=== PATIENT | female | born 1940 | race Caucasian/White ===

== ENCOUNTER 2022-04-22 11:14 | Emergency (ER) | payer MEDICARE, SELFPAY ==
--- NOTE | 2022-04-22 11:22 | ED.URI ---
HPI - URI/Sore Throat General Chief Complaint: Upper Respiratory Infection Stated Complaint: cough, congestion Time Seen by Provider: 04/22/22 11:53 Source: patient and RN notes reviewed Mode of arrival: ambulatory Limitations: no limitations History of Present Illness HPI Narrative: 81-year-old female presents with multiple complaints. She reports her primary complaint is a productive cough that started on , became productive yesterday. She denies nasal congestion, rhinorrhea, sore throat, chest pain, shortness of breath, fever, aches, chills, sweats. She reports small amount of yellow phlegm. She denies taking any medications for her symptoms. A separate complaint, she reports 5 month history of left TMJ pain. Reports she saw her dentist to told her she did not have any dental infection. She reports clicking and pain with chewing. She reports if she applies pressure to the jaw it helps her pain. MD elicited complaint: cough and other (Jaw pain) Related Data Home Medications Medication Instructions Recorded Confirmed atorvastatin 20 mg tablet 20 mg PO DAILY 04/22/22 04/22/22 hydrochlorothiazide 12.5 mg tablet 12.5 mg PO DAILY 04/22/22 04/22/22 lisinopril 10 mg tablet 10 mg PO DAILY 04/22/22 04/22/22 nifedipine 90 mg tablet,extended 90 mg PO DAILY 04/22/22 04/22/22 release 24 hr Allergies Allergy/AdvReac Type Severity Reaction Status Date / Time codeine Allergy Unknown Verified 04/22/22 11:33 Sulfa (Sulfonamide Allergy Unknown Verified 04/22/22 11:33 Antibiotics) Review of Systems Review of Systems: CONSTITUTIONAL: Denies malaise, chills, sweats, or fever. EYES: Denies visual changes, redness, or discharge. ENT: Denies rhinorrhea, congestion, sinus pain, otalgia and sore throat. Reports left jaw pain CARDIOVASCULAR: Denies chest pain, palpitations, or edema. RESPIRATORY: Reports productive cough. Denies dyspnea. GASTROINTESTINAL: Denies abdominal pain, nausea, vomiting, diarrhea SKIN: Denies rash or itching. MUSCULOSKELETAL: Denies myalgia. NEUROLOGIC: Denies headache. All systems reviewed & are unremarkable except as noted in HPI and below PMFSH Comments At time of signature, agree with nursing past medical, surgical, social and family history. There is no relevant family history pertinent to the presenting complaint Exam Narrative: GENERAL: Well-appearing, well-nourished, and in no acute distress. HEAD: Normocephalic EYES: PERRLA, conjunctivae clear ENT: Nares clear, clear discharge. Mucous membranes moist. TM pearly huang with dull light reflex bilaterally; no tragal tenderness. Oropharynx not erythematous without lesions. Tonsils not enlarged and without exudate, no drooling, no hoarseness, no trismus, uvula midline. Left Jaw clicking palpable NECK: Supple. No lymphadenopathy CHEST: Clear to auscultation, breath sounds equal. No wheezing, rhonchi, rales, or stridor. No respiratory distress, speaks in full sentences. HEART: Regular rate and rhythm. No murmur heard. SKIN: Warm, dry, no rash. NEURO: Alert and oriented x3. PSYCH: Normal mood and affect Course Course Emergency Course: Patient is aware of diagnosis, understands and agrees to treatment plan. Anticipatory guidance given. Patient agrees to follow-up as directed and is aware of reasons to seek care at the emergency department. Portions of this record may have been created with voice recognition software Level of Care: Express Care Visit Vital Signs Vital signs: Reviewed. MDM - URI/Sore Throat MDM Narrative Medical decision making narrative: Differential diagnosis considered: Jacome virus, strep pharyngitis, allergic rhinitis, upper respiratory tract infection, sinusitis, rhinosinusitis, nasopharyngitis. viral pharyngitis, otitis media, otitis externa, pneumonia, bronchitis, viral cough syndrome, viral syndrome, and influenza. Exam findings show no acute concerns or changes; patient is non-toxic appearing and is in no distres
[2022-04-22 11:25] VITALS: BP 165/95; PULSE 103; RESP 16; TEMP 37.1; O2SAT 97
== END 2022-04-22 12:14 | disposition home or self-care (01) ==
PROVIDERS: Emergency Provider Nurse Practitioner
DX: J40 Bronchitis, not specified as acute or chronic (principal); M26.602 Left temporomandibular joint disorder, unspecified; E78.00 Pure hypercholesterolemia, unspecified; I10 Essential (primary) hypertension
CPT/HCPCS: 99213; G0463

== ENCOUNTER 2023-04-16 09:51 | Emergency (ER) | payer MEDICARE, SELFPAY ==
[2023-04-16 10:19] VITALS: BP 144/71; PULSE 100; RESP 16; TEMP 37.2; O2SAT 96
--- NOTE | 2023-04-16 10:32 | ED.URI ---
HPI - URI/Sore Throat General Chief Complaint: Upper Respiratory Infection Stated Complaint: CONGESTION Time Seen by Provider: 04/16/23 10:32 History of Present Illness HPI Narrative: 82-year-old female presented for complaint of persistent nasal congestion, drainage, and mild cough for over 1 week. She states starting on 04/07/2023 she was extremely weak with a ?cold? for about one week, but symptoms have been improving. She took a leftover Rx for amoxicillin 2 tablets daily for about one week. Denies sob, wheezing, n/v/d/f/c. Related Data Home Medications Medication Instructions Recorded Confirmed atorvastatin 20 mg tablet 20 mg PO DAILY 04/22/22 04/16/23 hydrochlorothiazide 12.5 mg tablet 12.5 mg PO DAILY 04/22/22 04/16/23 lisinopril 10 mg tablet 10 mg PO DAILY 04/22/22 04/16/23 nifedipine 90 mg tablet,extended 90 mg PO DAILY 04/22/22 04/16/23 release 24 hr Allergies Allergy/AdvReac Type Severity Reaction Status Date / Time codeine AdvReac Mild Nausea Verified 04/16/23 10:40 Sulfa (Sulfonamide AdvReac Mild Nausea Verified 04/16/23 10:40 Antibiotics) Review of Systems Review of Systems: CONSTITUTIONAL: Denies body aches, fever, chills, or sweats. EYES: Denies visual changes, redness, or discharge. ENT: reports rhinorrhea, congestion CARDIOVASCULAR: Denies chest pain, palpitations, or edema. RESPIRATORY: Reports cough Denies dyspnea. GASTROINTESTINAL: Denies abdominal pain, nausea, vomiting, or diarrhea. SKIN: Denies rash, itching, or wounds. MUSCULOSKELETAL: Denies back pain, joint pain, or myalgia. NEUROLOGIC: Denies headache [facility] Past Medical History Medical History (Updated 04/16/23 @ 10:45 by Tereza Juan, [employer]) No pertinent past medical history Exam Narrative: GENERAL: well-appearing EYES: conjunctivae clear ENT: Mucous membranes moist. Nasal congestion. TMs pearly huang with normal light reflex bilaterally; no tragal tenderness. No tripod positioning, hot potato voice, or soft palate swelling. NECK: Supple. No lymphadenopathy CHEST: Clear to auscultation, breath sounds equal. No respiratory distress, speaks in full sentences. HEART: Regular rate and rhythm. No murmur heard. SKIN: Warm, dry, no rash. NEURO: Alert and oriented x3. Course Course Emergency Course: Patient is aware of diagnosis, understands and agrees to treatment plan. Anticipatory guidance given. Patient agrees to follow-up as directed and is aware of reasons to seek care at the emergency department. Portions of this record may have been created with voice recognition software Level of Care: Express Care Visit Vital Signs Vital signs: Vital Signs Temperature 99 F 04/16/23 10:19 Pulse Rate 100 04/16/23 10:19 Respiratory Rate 16 04/16/23 10:19 Blood Pressure 144/71 H 04/16/23 10:19 Pulse Oximetry 96 04/16/23 10:19 Temperature 99 F 04/16/23 10:19 Pulse Rate 100 04/16/23 10:19 Respiratory Rate 16 04/16/23 10:19 Blood Pressure 144/71 H 04/16/23 10:19 Pulse Oximetry 96 04/16/23 10:19 MDM - URI/Sore Throat MDM Narrative Medical decision making narrative: Discussed physical exam findings, patient has already completed a course of amoxicillin. Advise supportive treatments. Patient is appropriate for outpatient treatment and follow-up. Differential Diagnosis Differential diagnosis: Likely upper respiratory infection, viral infection and pharyngitis Discharge Plan Discharge Clinical Impression: Upper respiratory infection Patient Disposition: Home, Self-Care Condition: Stable Instructions: Antibiotic Form, Upper Respiratory Infection (ED) Additional Instructions: Recommend Flonase spray and Zyrtec (or Claritin/Domonique) over the counter Cough syrup may cause drowsiness; avoid driving or take it at night time. Coricidin HBP if you have hypertension Tylenol every 8 hours as needed for pain Symptomatic treatment includes: rest, fluids, and increa
== END 2023-04-16 10:45 | disposition home or self-care (01) ==
PROVIDERS: Emergency Provider Nurse Practitioner Family
DX: J06.9 Acute upper respiratory infection, unspecified (principal)
CPT/HCPCS: 99211; G0463